=== PATIENT | female | born 1955 | race Caucasian/White ===

== ENCOUNTER 2020-02-17 07:38 | Inpatient (IN) | payer OTHER ==
[~2020-02-17] VITALS: Ht 170.2 cm; Wt 75.7 kg
[~2020-02-17 07:38] MED LIST: BENA20TA75 PO; CYCL-10 PO; DULO60CA41 PO; FURO-149 PO; LEVO125T8 PO; NEU300 PO; OXYC-128 PO; PRO40 PO
[2020-02-17] MEDS ORDERED: THROMBIN (BOVINE) 5000 UNITS/ VIAL TP ONE (10:36)
[2020-02-17] MEDS ORDERED: POLYMYXIN 500,000/BACIT.10,000 UNITS in NS IRR 1 L IR ONE (10:36)
[2020-02-17] MEDS ORDERED: hydrALAZINE HCL 20 MG/ML VIAL IVP PRN (11:30)
[2020-02-17] MEDS ORDERED: LR 1,000 ML IV SCH (11:30)
[2020-02-17] MEDS ORDERED: HYDROmorphone 2 MG/ML VIAL IVP PRN ×4 (11:30→12:15)
[2020-02-17] MEDS ORDERED: MIDAZOLAM HCL 2 MG/2 ML VIAL (VERSED) IVP PRN (11:30)
[2020-02-17] MEDS ORDERED: MEPERIDINE HCL/PF 25 MG/ML DISP.SYRIN IVP PRN (11:30)
[2020-02-17] MEDS ORDERED: METOCLOPRAMIDE HCL 10 MG/2 ML VIAL IVP PRN (11:30)
[2020-02-17] MEDS ORDERED: ONDANSETRON HCL 4 MG/2 ML VIAL IVP PRN ×2 (11:30→12:15)
[2020-02-17] MEDS ORDERED: LABETALOL 100 MG/ 20ML VIAL IVP PRN (11:30)
[2020-02-17] MEDS ORDERED: MORPHINE 2 MG/ML INJ. SYRINGE IVP PRN (11:30)
[2020-02-17] MEDS ORDERED: HYDROcodone/ACETAMIN 10-325 MG TAB PO PRN ×2 (12:15)
[2020-02-17] MEDS ORDERED: MILK OF MAGNESIA 30 ML UDC PO PRN (12:15)
[2020-02-17] MEDS ORDERED: BACLOFEN 10 MG TABLET PO PRN (12:15)
[2020-02-17] MEDS ORDERED: ZOLPIDEM TARTRATE 5 MG TABLET PO PRN (12:15)
[2020-02-17] MEDS ORDERED: BISACODYL 10 MG/SUPPOSITORY RC PRN (12:15)
[2020-02-17] MEDS ORDERED: LABETALOL 100 MG/ 20ML VIAL ONE (12:18)
[2020-02-17] MEDS ORDERED: SUGAMMADEX SODIUM 200 MG/2 ML VIAL IV ONE (12:18)
[2020-02-17] MEDS ORDERED: SEVOFLURANE 15 MIN GAS INH ONE (12:18)
[2020-02-17] MEDS ORDERED: ROCURONIUM BROMIDE 10 MG/ML (ZEMURON) ONE (12:18)
[2020-02-17] MEDS ORDERED: VECURONIUM BROMIDE 10 MG/VIAL (NORCURON) ONE (12:18)
[2020-02-17] MEDS ORDERED: fentaNYL CITRATE 250 MCG/5 ML AMP ONE (12:18)
[2020-02-17] MEDS ORDERED: DEXAMETHASONE SOD PHOSPHATE 4 MG/ML VIAL ONE (12:18)
[2020-02-17] MEDS ORDERED: MIDAZOLAM HCL 5 MG/ML VIAL (VERSED) IV ONE (12:18)
[2020-02-17] MEDS ORDERED: PROPOFOL 200MG/ 20ML VIAL (DIPRIVAN) IV ONE (12:18)
[2020-02-17] MEDS ORDERED: LR 1,000 ML IV.SOLN IV ONE (12:18)
[2020-02-17] MEDS ORDERED: ONDANSETRON HCL 4 MG/2 ML VIAL ONE (12:18)
[2020-02-17] MEDS ORDERED: HYDROmorphone 2 MG/ML VIAL ONE (12:36)
[2020-02-17] MEDS: NACL 0.9% 1,000 ML IV SCH ×2 (13:25→22:40)
--- NOTE | 2020-02-17 15:36 | NUR ---
Received patient from OR, she is awake and alert and in stable condition. She was given dilaudid and fentanyl in the OR. She is not in any kind of distress or pain at this time. I got report from OR nurse. Bed is low, locked, 2 side rails up and call light is within reach. Nelson WOLFE
[2020-02-17] MEDS: HYDROmorphone 2 MG/ML VIAL IVP PRN ×3 (16:01→22:18)
[2020-02-17 17:13] VITALS: BP_SYST 150
--- NOTE | 2020-02-17 17:30 | NUR ---
Patient is doing well, is able to ambulate without assistance and she has a steady gait. She is not in any distress and presents no new complaints. Bed is low, locked, 2 side rails up and call light is within reach. Nelson WOLFE
[2020-02-17 17:53] VITALS: BP_SYST 150
--- NOTE | 2020-02-17 19:57 | NUR ---
Closing notes: Patient is stable and doing well, ambulates with a steady gait and without assistance. Her L hand IV infiltrated, it was removed and a new one started on left arm #22g, currently infusing NS. She is breathing well on RA. She presents no new complaints and ask for Dilaudid every 3 hrs for pain control. I will endorse to appliance service representative nurse. Bed is low, locked, 2 side rails up and call light is within reach. Nelson WOLFE
[2020-02-17 20:00] VITALS: BP_SYST 106
--- NOTE | 2020-02-17 20:10 | NUR ---
Opening notes Pt AAOx4, ambulated in the hallways. VSS, afebrile. No s/s distress noted. Abd dressing C/D/I. Call light within reach. Safety maintained. To monitor.
[2020-02-17] MEDS: DOCUSATE SODIUM 100 MG CAPSULE PO SCH (21:00)
--- NOTE | 2020-02-17 22:00 | NUR ---
IV restart IV came out from R. AC, catheter tip intact, no bleeding noted. IV restarted R. FA 22G via aseptic technique, flushes well w/ NS. Pt tolerated well. Pt medicated w/ Dilaudid 2mg IVP as needed for pain. To monitor.
[2020-02-17] MEDS: CEFAZOLIN 2 GM IVPB PREMIX 50 ML IV SCH (22:35)
--- NOTE | 2020-02-18 00:30 | NUR ---
Ambulated in the hallway No s/s distress or discomfort noted. Pt tolerated well. to monitor.
[2020-02-18 01:39] VITALS: BP_SYST 119
[2020-02-18] MEDS: HYDROmorphone 2 MG/ML VIAL IVP PRN ×3 (02:01→08:17)
[2020-02-18] MEDS: CEFAZOLIN 2 GM IVPB PREMIX 50 ML IV SCH (05:22)
--- NOTE | 2020-02-18 05:23 | NUR ---
Closing notes/Pain Pt c/o severe pain, medicated with Dilaudid 2mg IVP. Abd dressing C/D/I. IVF/Antibiotic infusing at ordered rate no s/s infiltration. CAll light within reach. Safety maintained. To monitor.
[2020-02-18 07:46] LABS: BASOPHILS % (AUTO) 0.2 % (0.0-2.0); HEMATOCRIT 30.3 % (36-48); HEMOGLOBIN 9.7 g/dL (12.0-16.0); LYMPHOCYTES # (AUTO) 1.4 K/uL (1.0-5.5); LYMPHOCYTES % (AUTO) 13.2 % (20.5-51.5); MEAN CORPUSCULAR HEMOGLOBIN 28 pg (27-31); MEAN CORPUSCULAR HGB CONC 32 % (32-36); MEAN CORPUSCULAR VOLUME 86 fL (79.0-98.0); MONOCYTES # (AUTO) 0.7 K/uL (0.0-1.0); MONOCYTES % (AUTO) 6.9 % (1.7-9.3); NEUTROPHILS # (AUTO) 8.6 K/uL (1.8-7.7); NEUTROPHILS % (AUTO) 79.7 % (40.0-70.0); PLATELET COUNT (AUTO) 340 K/uL (130-430); RED BLOOD CELL COUNT(AUTO) 3.54 MIL/uL (4.2-6.2); WHITE BLOOD COUNT (AUTO) 10.8 K/uL (4.8-10.8)
[2020-02-18 07:52] LABS: CALCIUM 8.6 mg/dL (8.4-11.0); CREATININE 1.75 mg/dL (0.55-1.30); POTASSIUM 4.7 mmol/L (3.5-5.1)
[2020-02-18 08:00] VITALS: BP_SYST 120
--- NOTE | 2020-02-18 08:00 | NUR ---
INITIAL NOTES-SITTING IN THE CHAIR COMPLAINING OF ABDOMINAL AND BACK PAIN. WILL MEDICATE. PT AMBULATE WITH STEADY GAIT WITHOUT THE BRACE YET. PT STATED THAT SHE IS UNCOMFORTABLE IN BED. IVF INFUSING WELL. WILL MONITOR.
[2020-02-18] MEDS: DOCUSATE SODIUM 100 MG CAPSULE PO SCH (08:21)
--- NOTE | 2020-02-18 08:49 | NUR ---
Case mgt: Rec'd order for lumbar sacral brace--I called nurse Junior to have nanny/household manager check materials department for brace-call me if there isn't one available in our stock supply. ER might have one also. MICK WOLFE
[2020-02-18 09:44] VITALS: BP_SYST 99
--- NOTE | 2020-02-18 10:08 | NUR ---
Discharge home, ambulate with steady gait. Pain is controlled at this time. Discharge instruction given and discussed with patient. pt verbalize and understanding. arm band and ivl removed. Will monitor. Addendum: 02/18/20 at 1011 by Emily Fisher RN discharge
== END 2020-02-18 10:10 | disposition home or self-care (01) | DRG 458 ==
LOC: SMU 07:38
PROVIDERS: ADMIT Neurological Surgery; ATTEND Neurological Surgery
PROC: 0SG10A0 Fusion of 2 or more Lumbar Vertebral Joints with Interbody Fusion Device, Anterior Approach, Anterior Column, Open Approach (ICD-10-PCS; 2020-02-17)
PROC: 0SG30A0 Fusion of Lumbosacral Joint with Interbody Fusion Device, Anterior Approach, Anterior Column, Open Approach (ICD-10-PCS; 2020-02-17)
PROC: 0ST20ZZ Resection of Lumbar Vertebral Disc, Open Approach (ICD-10-PCS; 2020-02-17)
PROC: 0ST40ZZ Resection of Lumbosacral Disc, Open Approach (ICD-10-PCS; 2020-02-17)
PROC: 01NB0ZZ Release Lumbar Nerve, Open Approach (ICD-10-PCS; 2020-02-17)
PROC: 4A11X4G Monitoring of Peripheral Nervous Electrical Activity, Intraoperative, External Approach (ICD-10-PCS; principal; 2020-02-17 10:11)
DX: M51.16 Intervertebral disc disorders with radiculopathy, lumbar region (principal); M41.50 Other secondary scoliosis, site unspecified; G89.29 Other chronic pain; Z03.818 Encounter for observation for suspected exposure to other biological agents ruled out
CPT/HCPCS: 36415; 76000; 80048; 85025; 87081; C9399; J0690; J1100; J1170; J2250; J2405; J2704; J3010; J3490; J7030; J7120

== ENCOUNTER 2020-02-19 12:47 | Inpatient (IN) | payer OTHER ==
[~2020-02-19] VITALS: Ht 165.1 cm; Wt 81.2 kg
[2020-02-19 12:50] VITALS: BP_SYST 147
--- NOTE | 2020-02-19 13:00 | NUR ---
PATIENT TO ER #3 WITH POLISHER NUMERAL, SAO2, ABP
--- NOTE | 2020-02-19 13:13 | NUR ---
PATIENT UP TO COMMODE FOR URINATION; PATIENT IS CRYING OUT AND IS NOT ABLE TO TELL WHAT HER SYMPTOMS ARE; INDICATED HE NOTED HER DISORIENTED STATE AND SUSPECTS IT IS SECONDARY TO PAIN MEDICATION USAGE; PATIENT IS ABLE TO TRANSFER FROM BED TO CHAIR BUT IS OTHERWISE UNABLE TO AMBULATE
--- NOTE | 2020-02-19 13:32 | NUR ---
PATIENT IS CURRENTLY SEDATE AND DENIES PAIN
[2020-02-19] MEDS ORDERED: NACL 0.9% 1,000 ML IV ONE (13:54)
--- NOTE | 2020-02-19 13:58 | NUR ---
ERMD ASSESSMENT; PATIENT UNCHANGED
[2020-02-19] MEDS ORDERED: ONDANSETRON HCL 4 MG/2 ML VIAL IVP ONE (14:00)
[2020-02-19] MEDS ORDERED: ASPIRIN 81 MG TAB.CHEW PO ONE (14:30)
--- NOTE | 2020-02-19 14:36 | NUR ---
PATIENT UNCOOPERATIVE FOR BLOOD DRAW AND ORAL MEDICATION; CAMEROND ADVISED
[2020-02-19 14:45] LABS: BILIRUBIN,URINE NEGATIVE (NEGATIVE); BLOOD, URINE 2+ (NEGATIVE); CLARITY/URINE CLEAR (CLEAR); COLOR,URINE YELLOW (YELLOW); GLUCOSE,URINE NEGATIVE (NEGATIVE); KETONES,URINE 1+ (NEGATIVE); LEUKOCYTE ESTERASE ,URINE NEGATIVE (NEGATIVE); NITRITE, URINE NEGATIVE (NEGATIVE); PH,URINE 5.5 (5.0-8.0); PROTEIN URINE NEGATIVE (NEGATIVE); UROBILINOGEN,URINE 0.2 (0.2-1.0)
[2020-02-19] MEDS ORDERED: MORPHINE 4 MG/ML INJ. SYRINGE IVP ONE (15:00)
[2020-02-19 15:03] LABS: BACTERIA,URINE FEW /HPF (None Seen); MUCUS,URINE None Seen /LPF (None Seen); RBC,URINE 0-3 /HPF (0-3); WBC,URINE NONE SEEN /HPF (0-3)
[2020-02-19 15:07] LABS: BASOPHILS % (AUTO) 0.1 % (0.0-2.0); EOSINOPHILS % (AUTO) 0.1 % (0.0-4.0); HEMATOCRIT 27.6 % (36-48); HEMOGLOBIN 8.9 g/dL (12.0-16.0); LYMPHOCYTES # (AUTO) 0.6 K/uL (1.0-5.5); LYMPHOCYTES % (AUTO) 5.2 % (20.5-51.5); MEAN CORPUSCULAR HEMOGLOBIN 28 pg (27-31); MEAN CORPUSCULAR HGB CONC 32 % (32-36); MEAN CORPUSCULAR VOLUME 85 fL (79.0-98.0); MONOCYTES # (AUTO) 0.8 K/uL (0.0-1.0); NEUTROPHILS # (AUTO) 10.1 K/uL (1.8-7.7); NEUTROPHILS % (AUTO) 87.6 % (40.0-70.0); PLATELET COUNT (AUTO) 240 K/uL (130-430); RED BLOOD CELL COUNT(AUTO) 3.23 MIL/uL (4.2-6.2); WHITE BLOOD COUNT (AUTO) 11.5 K/uL (4.8-10.8)
[2020-02-19 15:14] LABS: PROTHROMBIN TIME 10.1 SECS (9.5-12.5)
--- NOTE | 2020-02-19 15:21 | NUR ---
PATIENT RESTLESS AND AGITATED, CALLING 'MOM'; MEDICATED FOR PAIN
[2020-02-19 15:26] LABS: CALCIUM 8.8 mg/dL (8.4-11.0); CREATININE 1.74 mg/dL (0.55-1.30); POTASSIUM 3.9 mmol/L (3.5-5.1)
[2020-02-19 15:30] LABS: BARBITURATE, URINE NEGATIVE (NEG <=200); BENZODIAZEPINE, URINE NEGATIVE (NEG <=150); CANNABINOID, URINE NEGATIVE (NEG <=50); COCAINE, URINE NEGATIVE (NEG <=150); METHAMPHETAMINES SCREEN,URINE NEGATIVE (NEG <=500); OPIATE, URINE POSITIVE (NEG <=100); PHENCYCLIDINE SCREEN,URINE NEGATIVE (NEG <=25); UR TRICYCLIC ANTIDEPRESSANTS NEGATIVE (NEG <=300); URINE AMPHETAMINE NEGATIVE (NEG <=500); URINE METHADONE NEGATIVE (NEG <=200); URINE OXYCODONE SCREEN POSITIVE (NEG <=100); URINE PROPOXYPHENE SCREEN NEGATIVE (NEG <=300)
[2020-02-19 15:30] LABS: ALBUMIN 3.2 g/dL (3.4-4.8); TOTAL BILIRUBIN 0.4 mg/dL (0.0-1.0)
[2020-02-19] MEDS ORDERED: DIPHENHYDRAMINE INJ 50 MG/ML VIAL IVP ONE (15:30)
[2020-02-19] MEDS ORDERED: HALOPERIDOL LACTATE 5 MG/ML VIAL IVP ONE (15:30)
[2020-02-19] MEDS ORDERED: LORazepam 2 MG/ML VIAL IVP ONE (15:30)
--- NOTE | 2020-02-19 15:53 | NUR ---
REASSESSMENT; PATIENT RETURNED FROM XRAY, SEDATE AND DENIES PAIN; (HALDOL, ATIVAN, BENADRYL HELD PER ERMD) INCONTINENT OF URINE; LINEN CHANGE AND CHUX
--- NOTE | 2020-02-19 16:00 | NUR ---
[facility] 4/3/5
[2020-02-19 16:04] LABS: CKMB RELATIVE INDEX 2.9 (0.0-2.9); CREATINE KINASE MB 23.5 ng/mL (0-3.6)
[2020-02-19] MEDS ORDERED: PIPERACILLIN/TAZO 3.375 GM in NS 50 ML IV ONE (16:45)
[2020-02-19] MEDS ORDERED: PIPERACILLIN/TAZOBACTAM 3.375 GM/VIAL (ZOSYN) IV ONE (17:04)
[2020-02-19] MEDS ORDERED: LR 1,000 ML IV ONE (17:15)
--- NOTE | 2020-02-19 17:16 | NUR ---
REASSESSMENT; PATIENT IS AWAKE AND STATES SHE IS IN PAIN AT (10); MEDICATED
[2020-02-19] MEDS ORDERED: HYDROmorphone 2 MG/ML VIAL ONE (17:27)
--- NOTE | 2020-02-19 17:42 | NUR ---
REASSESSMENT; PATIENT STATES MARKED IMPROVEMENT IN PAIN; ADMITTING CALLED FOR MS BED
--- NOTE | 2020-02-19 18:56 | NUR ---
PATIENT REMAINS SEDATE AND PAIN FREE; ADMISSION PENDING
[2020-02-19] MEDS: HYDROmorphone 2 MG/ML VIAL IVP PRN ×2 (18:58→22:44)
--- NOTE | 2020-02-19 19:14 | NUR ---
Report recieved from YANETH Tyson. Pt stable resting, symmetric chest rise and fall.
--- NOTE | 2020-02-19 20:06 | NUR ---
Spoke to director community center, requested M/S bed.
--- NOTE | 2020-02-19 20:52 | NUR ---
M/S Floor states no Beds currently available. Medsurg Hold in ER at this time.
--- NOTE | 2020-02-19 22:08 | NUR ---
Patient will be admitted to care of [facility]. Admitted to M/S unit. Will go to room 105B. Belongings list completed. Complete and up to date summary report printed. SBAR report to be given at bedside with opportunity for questions.
--- NOTE | 2020-02-19 22:15 | NUR ---
pt.received via the er-dept.terri has provided/conveyed the pt's report/data.pt.presented to sdch from home intractable pain ;back. pt.is s/p surgery;back x2 days.per . is the assigned attending md;dottie.for the pt.pt.presents iv access location;rt.foot;intact;patent.iv fluids;lr infusing.pt.c/o pain:to review the emar med-list;re;pain medication.general cutaneous integrity intact.general status stable.respiratory status stable;o2-sat%=98%@room air.call light/telephone demonstration presented to the pt. return demonstration satisfactory.per the pt.
[2020-02-19 22:30] VITALS: BP_SYST 125
--- NOTE | 2020-02-19 22:45 | NUR ---
i have administered dilaudid;2mg ivp;via the peripheral iv access;location;rt.foot.iv access intact;patent;blood return extant. to re-assess the pain medication efficacy per pain mgx protocol.
--- NOTE | 2020-02-19 23:15 | NUR ---
pt.assessed.pt.presents quiescent affect;calm,somnolent.iv access intact;patent iv fluids infusing. per flacc;pain mgx;pt.absent facial grimaces/body posturing.
[2020-02-20] VITALS: BP_SYST 122
--- NOTE | 2020-02-20 | NUR ---
pt.assessed.v/s assessed;values w/in normal limits.no c/o pain,nausea.i have provided the pt.water.iv access intact;patent iv fluids infusing. pt.repositioned.general status stable.respiratory status stable:o2-sat%=98%.call light/telephone placed w/in reach of the pt.
[2020-02-20] MEDS: HYDROmorphone 2 MG/ML VIAL IVP PRN ×2 (01:59→05:00)
--- NOTE | 2020-02-20 02:00 | NUR ---
pt.assessed.pt.presents requested medication;pain.i have administered diludid:2mg ivp.to re-assess the pain medication efficacy per pain mgx protocol.iv access intact/patent iv fluids infusing.i have provided water.call light/telephone placed w/in reach of the pt.pt.repositioned.
--- NOTE | 2020-02-20 04:00 | NUR ---
pt.assessed.pt.presents quiescent affect;calm,somnolent.iv fluids access intact;patent iv fluids infusing. general status stable. respiratory status stable.unlabored.pt.capable to reposition self.call light/telephone w/in reach of the pt.
--- NOTE | 2020-02-20 06:26 | NUR ---
pt.assessed.pt.assessed for cleanliness.pt.repositioned.iv fluids lr x1 dose completed.iv access:location rt.foot;intact;patent iv lock status. i have medicated the pt.pain:dilaudid;2mg ivp.general status stable.respiratory status stable.call light/telephone placed w/in reach of the pt.
--- NOTE | 2020-02-20 06:56 | NUR ---
Nutrition Update Alfie Scale 18 noted. Pt admitted for Abdominal Pain Diet: Regular BMI: 29.8 kg/m2 RD to follow per nutrition care standards.
[2020-02-20 08:00] VITALS: BP_SYST 140
--- NOTE | 2020-02-20 08:32 | NUR ---
PATIENT IS IN BED LYING DOWN. PATIENT IS A&O X1 TO PERSON. SHE REPEATEDLY SAYS THANK YOU AND CALLS OUT FOR HER MOTHER. SPOKE WITH BY PHONE AND HE STATED SHE IS DOING BETTER THAN SHE HAS BEEN. SPOKE WITH PATIENT BY PHONE. PATIENT DENIES PAIN. PATIENT DOES NOT DISPLAYS SIGNS OF SHORTNESS OF BREATH. CALL LIGHT IN REACH. BED IN LOW POSITION. WILL CONTINUE TO MONITOR PATIENT THROUGHOUT SHIFT.
--- NOTE | 2020-02-20 10:56 | NUR ---
PAGED DOCTOR TO GET ORDER FOR PO PAIN MEDICATION. DR. LIU ORDERED NORCO 10 1 TAB FOR MODERATE PAIN AND 2 TAB FOR SEVERE PAIN. PATIENT IS UNABLE TO FEED SELF. WILL CONTINUE TO MONITOR. BED IN LOW POSITION. CALL LIGHT IN REACH.
[2020-02-20] MEDS ORDERED: HYDROcodone/ACETAMIN 10-325 MG TAB PO PRN (11:00)
[2020-02-20] MEDS: HYDROcodone/ACETAMIN 10-325 MG TAB PO PRN ×2 (11:34→20:11)
[2020-02-20 12:23] VITALS: BP_SYST 143
[2020-02-20 16:14] VITALS: BP_SYST 144
--- NOTE | 2020-02-20 18:50 | NUR ---
PATIENT IS IN BED RESTING. PATIENT IS A&O X2-3 AND IS IMPROVING NEUROLOGICALLY COMPARED TO THIS MORNING. PATIENT HAS SPOKEN TO FAMILY THROUGHOUT THE ENTIRE DAY. PATIENT DENIES PAIN, DISCOMFORT, AND SHORTNESS OF BREATH. CALL LIGHT IN REACH. BED IN LOW POSITION. WILL GIVE REPORT TO NIGHT NURSE.
[2020-02-20 20:00] VITALS: BP_SYST 155
--- NOTE | 2020-02-20 20:16 | NUR ---
c/o Pain reporting severe abdominal pain and [place] (2tab) given for severe pain as ordered, educated on side effects; verbalized understanding. Bed alarm on and call light w/in reach.
[2020-02-20] MEDS: LR 1,000 ML IV SCH (21:00)
--- NOTE | 2020-02-20 23:16 | NUR ---
Paged Dr. Bourne s/w Vivi
--- NOTE | 2020-02-20 23:25 | NUR ---
Dr. Steffen Bourne informed patient received PO [place] 2 tabs (10-325) for severe pain and it did not help. Patient does not have IV site. He gave orders for one time diluadid 2mg IM, read back order.
[2020-02-20] MEDS ORDERED: HYDROmorphone 2 MG/ML VIAL IM ONE (23:30)
--- NOTE | 2020-02-20 23:56 | NUR ---
Dilaudid Diluadid IM given for severe pain, will monitor.
[2020-02-21 00:55] VITALS: BP_SYST 146
--- NOTE | 2020-02-21 03:15 | NUR ---
pain med Patient reporting moderate pain and given, norco 10-325 1 tab, will continue to monitor.
[2020-02-21] MEDS: HYDROcodone/ACETAMIN 10-325 MG TAB PO PRN ×2 (05:29→12:24)
--- NOTE | 2020-02-21 06:45 | NUR ---
ambulating / closing note Patient is ambulating in hallway, steady gait, No IV site. No s/sx of distress. She reports pain is present, it never goes away. Will endorse to incoming nurse.
[2020-02-21] MEDS: LR 1,000 ML IV SCH (07:00)
[2020-02-21 08:00] VITALS: BP_SYST 152
[2020-02-21 12:19] VITALS: BP_SYST 148
[2020-02-21 13:44] VITALS: BP_SYST 148
--- NOTE | 2020-02-21 15:26 | NUR ---
PATIENT A&O X4. PATIENT DISCHARGED HOME WITH HER . NO SIGNS AND SYMTPOMS OF DISTRESS OR SHORTNESS OF BREATH.
[2020-02-21 16:00] VITALS: BP_SYST 137
== END 2020-02-21 15:20 | disposition home or self-care (01) | DRG 641 ==
LOC: SED 12:47 → SMU 17:01
PROVIDERS: ADMIT Neurological Surgery; ATTEND Neurological Surgery
DX: E86.0 Dehydration (principal); I10 Essential (primary) hypertension; F41.9 Anxiety disorder, unspecified; E03.9 Hypothyroidism, unspecified; Z79.899 Other long term (current) drug therapy; Z98.1 Arthrodesis status
CPT/HCPCS: 36415; 70450-TC; 71045; 80053; 80307; 81000-TC; 82150-TC; 82550-TC; 82553-TC; 83605; 83690-TC; 84484; 85025; 85610-TC; 85730-TC; 87040-TC; 87081; 93005; 96361; 96365; 96375; 99285; J1170; J1200; J1630; J2060; J2270; J2405; J2543; J7030

== ENCOUNTER 2020-12-14 11:02 | Inpatient (IN) | payer OTHER, SELFPAY ==
[~2020-12-14] VITALS: Ht 170.2 cm; Wt 68.9 kg
[2020-12-14] MEDS ORDERED: ONDANSETRON HCL 4 MG/2 ML VIAL IVP PRN ×2 (12:30→15:30)
[2020-12-14] MEDS ORDERED: fentaNYL CITRATE/PF 100 MCG/2 ML AMP IVP PRN (12:30)
[2020-12-14] MEDS ORDERED: NS 1000 ML IV.SOLN IV ONE (14:00)
[2020-12-14] MEDS ORDERED: ONDANSETRON HCL 4 MG/2 ML VIAL IVP ONE (14:00)
[2020-12-14] MEDS ORDERED: MIDAZOLAM HCL 5 MG/5 ML VIAL IVP ONE (14:00)
[2020-12-14] MEDS ORDERED: SEVOFLURANE 15 MIN GAS INH ONE (14:00)
[2020-12-14] MEDS ORDERED: fentaNYL CITRATE/PF 100 MCG/2 ML AMP IVP ONE (14:00)
[2020-12-14] MEDS ORDERED: ROCURONIUM BROMIDE 10 MG/ML (ZEMURON) IV ONE (14:00)
[2020-12-14] MEDS ORDERED: LR 1,000 ML IV.SOLN IV ONE (14:00)
[2020-12-14] MEDS ORDERED: CEFAZOLIN 2 GM IVPB PREMIX 50 ML IV ONE (14:00)
[2020-12-14] MEDS ORDERED: THROMBIN (BOVINE) 5000 UNITS/ VIAL TP ONE (14:12)
[2020-12-14] MEDS ORDERED: HYDROmorphone 1 MG INJ. 1 MG/ML CARTRIDGE IVP PRN ×2 (15:30)
[2020-12-14] MEDS ORDERED: HYDROcodone/ACETAMIN 10-325 MG TAB PO PRN (15:30)
[2020-12-14] MEDS ORDERED: BISACODYL 10 MG/SUPPOSITORY RC PRN (15:30)
[2020-12-14] MEDS ORDERED: methocarbamoL 500 MG TABLET PO PRN (15:30)
[2020-12-14] MEDS ORDERED: ZOLPIDEM TARTRATE 5 MG TABLET PO PRN (15:30)
[2020-12-14] MEDS ORDERED: DIPHENHYDRAMINE HCL 25 MG CAPSULE PO PRN (15:30)
[2020-12-14] MEDS ORDERED: MILK OF MAGNESIA 30 ML UDC PO PRN (15:30)
[2020-12-14] MEDS ORDERED: HYDROmorphone 1 MG INJ. 1 MG/ML CARTRIDGE ONE (15:42)
[2020-12-14 16:00] VITALS: BP_SYST 139
[2020-12-14] MEDS ORDERED: fentaNYL CITRATE/PF 100 MCG/2 ML AMP ONE (16:07)
[2020-12-14] MEDS: fentaNYL CITRATE/PF 100 MCG/2 ML AMP IVP PRN ×2 (16:08→16:10)
[2020-12-14 16:32] VITALS: BP_SYST 137
[2020-12-14 18:30] VITALS: BP_SYST 137
[2020-12-14] MEDS: HYDROmorphone 2 MG/ML VIAL IVP PRN ×2 (18:36→22:37)
[2020-12-14 19:23] VITALS: BP_SYST 108
[2020-12-14 19:30] VITALS: BP_SYST 115
[2020-12-14] MEDS: DOCUSATE SODIUM 100 MG CAPSULE PO SCH (20:52)
[2020-12-15 00:50] VITALS: BP_SYST 129
[2020-12-15] MEDS: HYDROmorphone 2 MG/ML VIAL IVP PRN ×7 (02:34→21:32)
[2020-12-15 08:00] VITALS: BP_SYST 114
[2020-12-15] MEDS: DOCUSATE SODIUM 100 MG CAPSULE PO SCH ×2 (08:35→21:11)
[2020-12-15 12:14] VITALS: BP_SYST 106
[2020-12-15 16:12] VITALS: BP_SYST 116
[2020-12-15 19:30] VITALS: BP_SYST 104
[2020-12-16] MEDS: HYDROmorphone 2 MG/ML VIAL IVP PRN ×4 (00:48→13:22)
[2020-12-16 01:25] VITALS: BP_SYST 111
[2020-12-16] MEDS: HYDROcodone/ACETAMIN 10-325 MG TAB PO PRN ×2 (04:52→15:59)
[2020-12-16 08:00] VITALS: BP_SYST 112
[2020-12-16] MEDS: DOCUSATE SODIUM 100 MG CAPSULE PO SCH (09:59)
[2020-12-16 12:57] VITALS: BP_SYST 120
[2020-12-16 16:00] VITALS: BP_SYST 105
== END 2020-12-16 16:15 | disposition home or self-care (01) | DRG 460 ==
LOC: SDS 11:02 → SMU 11:04 → SDS 12-15 19:41 → SMU 12-15 19:42
PROVIDERS: ADMIT Neurological Surgery; ATTEND Neurological Surgery
PROC: 4A11X4G Monitoring of Peripheral Nervous Electrical Activity, Intraoperative, External Approach (ICD-10-PCS; 2020-12-14)
PROC: 0SG80JZ Fusion of Left Sacroiliac Joint with Synthetic Substitute, Open Approach (ICD-10-PCS; principal; 2020-12-14 14:00)
DX: M46.1 Sacroiliitis, not elsewhere classified (principal)
CPT/HCPCS: 76000; J0690; J1170; J2250; J2405; J3010; J7030; J7120